=== PATIENT | female | born 1940 | race Caucasian/White ===

== ENCOUNTER 2021-02-10 13:41 | Emergency (ER) | payer MEDICARE, BC ==
[2021-02-10 14:47] LABS: ALT (SGPT) 18 U/L (8-55); AST (SGOT) 36 U/L (5-34); Albumin 4.1 g/dL (3.4-4.8); Alkaline Phosphatase 93 U/L (40-110); Anion Gap 16 mmol/L (10-20); BUN (Urea Nitrogen) 21 mg/dL (9.8-20.1); Bilirubin, Total 2.8 mg/dL (0.2-1.2); Calc. Creatinine Clearance 0 mL/min (70-130); Calcium 8.8 mg/dL (7.8-10.44); Carbon Dioxide 22 mmol/L (23-31); Chloride 107 mmol/L (98-107); Globulin 3.1 g/dL (2.4-3.5); Glucose 107 mg/dL (83-110); Protein, Total 7.2 g/dL (5.8-8.1); Sodium 141 mmol/L (136-145)
[2021-02-10 14:48] LABS: Platelet Count 142 10x3/uL (150-450)
[2021-02-10 14:49] LABS: #Monocytes 1.2 10x3/uL (0.0-1.1); #Neutrophils 9.6 10x3/uL (1.5-8.4); %Basophils 0.3 % (0.0-2.0); %Eosinophils 0.1 % (0.0-6.0); %Lymphocytes 6.4 % (18.0-47.0); %Neutrophils 82.8 % (40.0-75.0); Hemoglobin 11.3 g/dL (12.0-15.5); Mean Corpuscular HGB CONC 33.6 g/dL (32.0-36.0); Mean Corpuscular Hemoglobin 30.1 pg (27.0-33.0); Mean Corpuscular Volume 89.4 fl (81.6-98.3); Mean Platelet Volume 12.9 fl (7.4-10.4); RBC Distribution Width 17.2 % (11.5-14.5); Red Blood Cell (RBC) Count 3.76 10x6/uL (3.90-5.03); White Blood Cell (WBC) Count 11.6 10x3/uL (3.5-10.5)
[2021-02-10 15:10] LABS: CKMB 4.7 ng/mL (0-6.6)
[2021-02-10] MEDS ORDERED: Furosemide 40 MG/4 ML VIAL ONE (15:22)
[2021-02-10] MEDS ORDERED: Nitroglycerin 2% Ointment 1 INCH/1 GM Packet ONE (15:22)
[2021-02-10 17:49] LABS: Bilirubin Neg (Negative); Blood, Urine 10 (Negative); Clarity Clear (Clear); Glucose, Urine (Dipstick) Normal (Negative); Ketone, Urine Negative (Negative); Leukocyte 25 (Negative); Nitrite Negative (Negative); Protein, Urine (Dipstick) 30 mg/dl (Neg-Trace); Urobilinogen Normal mg/dL (Less than 2)
[2021-02-10 18:01] LABS: Bacteria/HPF Rare-Few HPF (None Seen); RBC/HPF 0-3 HPF (0-3); Squamous Epithelial 0-3 HPF (0-3); Transitional Epithelial 0-3 HPF (None Seen)
[2021-02-10] MEDS ORDERED: Ondansetron PF 4 MG/2 ML Vial IVP PRN (20:30)
[2021-02-10] MEDS ORDERED: Acetaminophen 325 MG TAB PO PRN (20:30)
[2021-02-10] MEDS ORDERED: Ondansetron ODT 4 MG TAB SL PRN (20:30)
== END 2021-02-10 19:46 | disposition admitted as inpatient to this hospital (09) ==
LOC: CSHERS 13:41
DX: I11.0 Hypertensive heart disease with heart failure (principal); I50.9 Heart failure, unspecified; R09.02 Hypoxemia; R77.8 Other specified abnormalities of plasma proteins; I25.10 Atherosclerotic heart disease of native coronary artery without angina pectoris; M19.90 Unspecified osteoarthritis, unspecified site; Z79.82 Long term (current) use of aspirin; Z79.899 Other long term (current) drug therapy
CPT/HCPCS: 71045; 71275; 80053; 81003; 81015; 82553; 84484; 85025; 93005; 96374; J1940

== ENCOUNTER 2023-01-30 09:28 | Outpatient (CLI) | payer MEDICARE, BC | END 2023-01-30 09:29 | disposition home or self-care (01) | LOC: CSHULT 09:28 | PROVIDERS: ATTEND Internal Medicine Gastroenterology | DX: K52.9 Noninfective gastroenteritis and colitis, unspecified (principal); R15.9 Full incontinence of feces; Z87.19 Personal history of other diseases of the digestive system; Z86.010 Personal history of colon polyps; R79.89 Other specified abnormal findings of blood chemistry | CPT/HCPCS: 76705 ==